=== PATIENT | female | born 2000 | race Two or more races ===

== ENCOUNTER 2025-03-18 00:55 | Emergency (ER) | payer OTHER, MEDICAID, SELFPAY ==
[2025-03-18 00:57] VITALS: BP 154/96; PULSE 100; RESP 18; TEMP 36.9; O2SAT 99
--- NOTE | 2025-03-18 01:34 | PD.EDRME ---
Rapid Medical Screening Exam E Arrival date/time: 03/18/25 00:55 24F with no significant PMH presents to ED with mom for 2 days of abnormal behavior. Patient is not very talkative, but mom states daughter has had some increased stress at home and was talking weird, on the phone. Mom drove up to [place] to pick her up. Patient states she just wants somewhere to lie down. She denies SI/HI, but patient was hesitant. She is okay talking to crisis in AM. Patient has no known history of psych or alcohol/drug use. Chief Complaint: Anxiety Vital signs: Vital Signs Temperature 98.5 F 03/18/25 00:57 Pulse Rate 100 03/18/25 00:57 Respiratory Rate 18 03/18/25 00:57 Blood Pressure 154/96 H 03/18/25 00:57 Pulse Oximetry (%) 99 03/18/25 00:57 Oxygen Delivery Method Room Air 03/18/25 00:57
[2025-03-18 01:59] LABS: Basophils # (Auto) 0.1 Thou/mm3 (0.0-0.2); Basophils % (Auto) 1 % (0-2.5); Eosinophils # (Auto) 0.2 Thou/mm3 (0.0-0.5); Eosinophils % (Auto) 2 % (0-10); Hematocrit 40.9 % (36.0-46.0); Hemoglobin 14.5 g/dL (12.0-16.0); Immature Granulocytes % (Auto) 0 % (0-0); Immature Granulocytes Auto 0.02 Thou/mm3 (0.00-0.00); Lymphocytes # (Auto) 1.7 Thou/mm3 (1.0-4.8); Lymphocytes % (Auto) 18 % (10-50); Mean Corpuscular HGB Conc 35.5 g/dl (31.0-37.0); Mean Corpuscular Hemoglobin 29.8 pg (25.0-35.0); Mean Corpuscular Volume 84 fL (80-100); Monocytes # (Auto) 0.9 Thou/mm3 (0.0-0.8); Monocytes % (Auto) 9 % (0-12); Neutrophils # (Auto) 6.9 Thou/mm3 (1.8-7.7); Neutrophils % (Auto) 71 % (37-80); Nucleated Red Blood Cell % 0 /100 WBC (0); Platelet Count 413 Thou/mm3 (140-440); RDW Standard Deviation 37.5 fL (36.4-46.3); Red Blood Count 4.87 Miln/mm3 (4.00-5.20); White Blood Count 9.7 Thou/mm3 (3.6-11.0)
[2025-03-18 02:20] LABS: Acetaminophen < 2.0 mcg/mL (10.0-20.0); Alanine Aminotransferase 18 U/L (10-49); Albumin, Serum 4.9 gm/dL (3.5-5.0); Albumin/Globulin Ratio 1.8 (1.2-2.2); Alcohol, Blood Medical < 3.0 mg/dL (0-10.0); Alkaline Phosphatase 57 U/L (46-116); Ammonia < 10 uMol/L (11-32); Anion Gap 12 (7-16); Aspartate Amino Transferase 22 U/L (0-34); BUN/Creatinine Ratio 8 Ratio (12-20); Bilirubin,Total 0.8 mg/dL (0.3-1.2); Blood Urea Nitrogen 7 mg/dL (9-23); Calcium 9.7 mg/dL (8.3-10.6); Calcium (Corrected) 9.7 mg/dL (8.5-10.1); Chloride 105 mMol/L (98-107); Creatinine (Component) 0.9 mg/dL (0.6-1.3); Estimated Creatinine Clearance 81.4 mL/min (>60); Globulin 2.7 gm/dL (2.3-3.5); Glucose 114 mg/dL (74-106); Osmolality,Calculated 280 (275-295); Potassium 3.2 mMol/L (3.4-5.1); Salicylate < 3.0 mg/dL; Sodium 141 mMol/L (136-145); Total Protein 7.6 gm/dL (5.7-8.2); eGFR > 60 See Note
[2025-03-18 03:33] LABS: Collection Type, Urine Clean Catch
[2025-03-18 03:36] LABS: HCG Qualitative,Urine Negative
[2025-03-18 03:38] LABS: Bacteria,Urine 1+; Bilirubin,Urine Negative (Negative); Blood,Urine Negative (Negative); Clarity,Urine Clear (Clear/Hazy); Color,Urine Colorless (Lt Yel-Yel); Glucose, Urine Negative (Negative); Ketones,Urine 1+ (Negative); Leukocyte Esterase,Urine Positive (Negative); Nitrite,Urine Negative (Negative); PH,Urine 6.5 (5.0-7.0); Protein,Urine Negative (Neg - Trace); RBC,Urine 4 /hpf (0-3); Specific Gravity,Urine 1.007 (1.001-1.035); Squamous Epithelial Cell,Urine 2 /hpf (0-5); Urobilinogen,Urine Negative mg/dL (0.0-1.0); WBC,Urine 9 /hpf (0-5)
[2025-03-18 03:40] LABS: Magnesium 1.9 mg/dL (1.6-2.6)
--- NOTE | 2025-03-18 03:43 | PD.EDPSYCH ---
ED Psych RME/HPI General Chief Complaint: Anxiety Stated Complaint: ANXIETY Time Seen by Provider: 03/18/25 02:23 Arrival date/time: 03/18/25 00:55 RME / HPI RME / HPI Narrative: 03/18/25 00:55 24F with no significant PMH presents to ED with mom for 2 days of abnormal behavior. Patient is not very talkative, but mom states daughter has had some increased stress at home and was talking weird, on the phone. Mom drove up to [place] to pick her up. Patient states she just wants somewhere to lie down. She denies SI/HI, but patient was hesitant. She is okay talking to crisis in AM. Patient has no known history of psych or alcohol/drug use. DR. FARZAD LEDEZMA ED EVALUATION: 24 y/o female BIB mother presents to ED c/o acting labile x 3 days. Per mother, patient's states patient has not been acting like herself for the last few days, so mother drove to [place] and brought patient back to [place]. Mother insists patient is simply stressed from work and simply needs medication to calm her down. No modifying factors, no radiation, no migration. No pain reported overall. Related Data Home Medications ?Medication ?Instructions ?Recorded ?Confirmed Acetaminophen/Caffeine/Butalb * 1 tab PO [id number] PRN HEADACHE #0 06/19/16 (FIORICET *) tabs Allergies Allergy/AdvReac Type Severity Reaction Status Date / Time No Known Allergies Allergy Verified 03/18/25 00:57 Review of Systems Review of Systems Systems Reviewed: All systems reviewed, normal except as documented Narrative Review of Systems: Gen: No fever, no chills, no weight loss EYES: No discharge, no visual changes, no pain HEENT: No ear pain, no congestion, no sore throat PULM: No shortness of breath, no cough, no congestion CV: No chest pain, no dyspnea on exertion, no palpitations GI: No nausea, no vomiting, no diarrhea, no pain, no constipation : No frequency, no urgency, no dysuria Musc/skel: No joint pain, no back pain Skin: No rash. Psyc: No hallucinations, no depression, acting labile Heme/Lymph: No easy bleeding or bruising tendencies Neuro: No weakness, no headache ED Exam Narrative Physical exam: GENERAL APPEARANCE: alert and oriented x 4, well-developed, well-nourished, no acute distress VITALS: All vitals were reviewed and the pulse ox is 98% on room air, which is normal according to my interpretation. HEENT: Normocephalic, atraumatic; pupils equal, round, reactive to light; EOMI; mucous membranes pink, moist; oropharynx clear NECK: Supple LUNGS: CTABL; no wheezes, no rales, no rhonchi HEART: Regular rate, regular rhythm; normal S1, S2; no murmurs ABDOMEN: non distended; normal BS; soft, no tenderness, no guarding, no rebound; no masses, no organomegaly, no hernia BACK: no CVA tenderness EXTREMITIES: atraumatic; no edema NEUROLOGIC: awake; alert and oriented x4; cranial nerves II-XII grossly intact; no focal sensory or motor deficits PSYCHIATRIC: pressured speech, labile emotions SKIN: warm, dry, normal color; no rashes Course Course Course Narrative: 0317: KCL ordered; Magnesium test ordered. 0440: TSH and CT head/brain w/o contrast ordered. Quality Measures none Orders Category Date Time Status CT head/brain wo con Stat Exams 03/18/25 04:40 Completed Acetaminophen Stat Lab 03/18/25 01:40 Completed Alcohol, Blood Medical Stat Lab 03/18/25 01:40 Completed Ammonia Stat Lab 03/18/25 01:40 Completed CBC Stat Lab 03/18/25 01:40 Completed CMP [Comprehensive Metabolic Panel] Stat Lab 03/18/25 01:40 Completed Drug Screen,Urine Stat Lab 03/18/25 03:29 Completed HCG Qualitative,Urine Stat Lab 03/18/25 03:29 Completed Magnesium Stat Lab 03/18/25 01:40 Completed Salicylate Stat Lab 03/18/25 01:40 Completed Thyroid Stimulating Hormone Stat Lab 03/18/25 01:40 Completed Urinalysis Stat Lab 03/18/25 03:29 Completed KCL 10% Liq UDC 15 ML Med 03/18/25 03:17 Discontinued 40 meq PO X1 ONE Vital Signs Vital signs: Vital Signs Temperature 98.5 F 03/18/25 00:57 Pulse Rate 100 03/18/25 00:57 Respiratory Rate 18 03/18/25 00:57 Blood Pressure 154/96 H 03/18/25 00:57 Pulse Oximetry (%) 99 03/18/25 00:57 Oxygen Delivery Method Room Air 03/18/25 00:57 Psych MDM Narrative MDM Narrative:: Scribe Attestation: I, Haydee Haines, am scribing for and in the presence of Dr. Vasques. Provider Notation: Although this document has been carefully reviewed, there may still be some phonetic and other typographical errors. These errors are purely grammatical due to imperfections in the software program and should not be construed in any way to compromise the substance of the patient's medical care during this visit. Patient data External records reviewed:: [facility] previous records Clinical information provided by:: patient and parent (Mother) Social determinants that could affect healthcare access:: none Patient has the following chronic illnesses:: None reported. How is presenting disease/condition affected by chronic disease/condition?: no chronic disease (None reported.) Evaluation data The following diagnostics were reviewed and interpreted by me:: lab results and radiology exam(s) Lab and/or radiology exams considered but not ordered:: None. Interpretation Summary: RADIOLOGY Head/Brain CT w/o Contrast: Pending official radiology read. Medications / Prescriptions Medications or Prescriptions considered but not ordered:: None. Medication administrations:: Medication Administration History Discontinued Medications Potassium Chloride (Potassium Chloride 10% 20 Meq/15 Ml Udc) 40 meq PO X1 ONE Stop: 03/18/25 03:18 Last Admin: 03/18/25 05:32 Dose: 40 meq Documented By: GB See above if any. Consultations Consultation(s) initiated? (list below): No Diagnosis Psych Differential Diagnosis: acute psychosis, suicidal ideation, bipolar disorder, depression, drug-induced psychotic disorder and acute anxiety Most likely diagnosis given after review of the tests above:: Acute anxiety Admission Indicated Admission indicated?: not indicated Explain why admission is indicated or not indicated:: Does not meet admission criteria. Admission Request Was there a request for admission?: No Disposition Plan Disposition Plan: Discharge Discharge Attestation Discharge Attestation: The patient and all family members were given an opportunity to ask questions and understood the discharge instructions. Discharge instructions specifically effects, indications for sooner follow up or return to the emergency department, and the expected course of current diagnosis. Patient condition: Stable Discharge Plan Plan Patient Disposition: HOME (Self Care) Prescriptions/Referrals Prescriptions/Med Rec: No Action Acetaminophen/Caffeine/Butalb * (FIORICET *) 1 TAB tablet 1 tab PO [id number] PRN (Reason: HEADACHE) Qty: 0 Patient Comments: FOR PAIN OR HEADACHE Referrals: No Primary/Family,Physician [Primary Care Provider] - In 1 week Problem List Clinical Impression: Acute anxiety Patient/Caregiver Discharge Instructions Education Materials: ED Anxiety Reaction Print Language: [place] Stand Alone Forms: [facility] Award Info., Patient Portal Info Letter
--- NOTE | 2025-03-18 04:40 | XR_ITS ---
Examination: CT brain head without contrast. 2-D sagittal coronal reconstructions Date and time of exam:March 18, 2025 serial 0505 hours Comparison January 22, 2017 INDICATIONS: Onset altered mental status today CTDI: vol (mGy):44.6 DLP: (mGycm):826 Technique: Multiple CT axial sections of the brain have been obtained, 5 mm slice thickness. Contrast has not been administered. 2-D sagittal, coronal reconstructions have been obtained Low dose protocols were performed. One or more of the following dose reduction techniques were used; automated exposure control, adjustment of the mA and/or KV according to patient size, use of iterative reconstruction technique. Findings: No significant ventricular enlargement. Intra-axial or extra-axial hemorrhage density is not seen. No mass effect or midline shift Basal cisterns are not remarkable. Fourth ventricle is midline. Cranial vault intact. Impression: Negative for acute hemorrhage, mass effect or midline shift Advise clinical correlation follow up accordingly
--- NOTE | 2025-03-18 05:25 | PRELIM_ITS ---
CT scan of the head without intravenous contrast (axial sections with sagittal and coronal reformats). March 18, 2025 0509 hours Clinical History: AMS Comparison: None Findings: There is no intracranial hemorrhage, extra-axial collection, mass, mass-effect or midline shift. There is good canela-white differentiation. There is no CT evidence of acute large vascular territorial infarct. Ventricles are not enlarged or effaced. Visualized paranasal sinuses and tympanomastoid cavities are clear. The bony calvarium is intact. Impression: No intracranial hemorrhage, mass-effect or midline shift. No CT evidence of acute large vascular territorial infarct. Report Electronically Signed By: Chandana Griffin 03/18/2025 5:25:07 AM [EST]
[2025-03-18 05:29] VITALS: BP 147/98; PULSE 88; RESP 18; O2SAT 98
[2025-03-18] MEDS: POTASSIUM CHLORIDE 10% 20 MEQ/15 ML UDC 40 MEQ PO (05:32)
--- NOTE | 2025-03-18 05:33 | PC.NURSE ---
Pt noted to be making bizarre statements to staff members. Gave pt ordered potassium and provided juice. Pt states why did you bring juice to me specifically? Because earlier I was asking about protocol, protocol, protocol . RN asked pt to clarify what she meant to which she declined to answer.
[2025-03-18 06:10] LABS: Amphetamine/Methamp Scrn,U Negative (Negative); Barbiturate Screen,Urine Negative (Negative); Benzodiazepines Screen,Urine Negative (Negative); Benzoylecgonine Screen, Ur Negative (Negative); Fentanyl Screen,Urine Negative (Negative); Opiate Screen,Urine Negative (Negative); THC Screen,Urine Negative (Negative)
--- NOTE | 2025-03-18 06:36 | PC.NURSE ---
Mother approached nurses station asking for pt to receive IV fluids. Mother feels as though pt is dehydrated. Explained to mother that lab work was done and potassium was given as supplement and that pt is now dc'd but waiting to speak to crisis. Mother ok with this plan.
[2025-03-18 07:54] VITALS: BP 131/95; PULSE 97; RESP 18; TEMP 37.2; O2SAT 98
[2025-03-18 08:01] LABS: Thyroid Stimulating Hormone 2.52 uIU/mL (0.55-4.78)
--- NOTE | 2025-03-18 08:13 | PC.NURSE ---
factory worker came to bedside to speak with patient. Patient and mother states she is much better and that she is just tired. States she is ready to go home at this time and doesn't want to talk to anybody.
--- NOTE | 2025-03-18 08:24 | PC.CC ---
ASwKarin was consulted by provider Maciej regarding the patient wanting to speak to a social services. ASWKarin made face to face contact with the patient introduced self, role, and reason for visit. At bedside was patient's mother, Allegra patient provided consent for mother to remain in the room. Patient stated, I do not want to speak to a social services, I want to go home, I am tired. ASW provided patient with a [facility] Resource Guide and the [employer] number and informed her she could return to the hospital if she needs to. ASW provided update to provider Maciej, Residential Sales Manager Lanise, and bedside JASON Gutierrez.
== END 2025-03-18 08:44 | disposition home or self-care (01) ==
PROVIDERS: Physician Assistant; Emergency Provider Emergency Medicine
DX: F41.9 Anxiety disorder, unspecified (principal)
CPT/HCPCS: 36415; 70450; 80053; 80307; 80320; 80329; 81001; 81025; 82140; 83735; 84443; 85025; 99284; A9270; G0480